=== PATIENT | female | born 1950 | race Caucasian/White ===

== ENCOUNTER 2023-07-21 15:07 | Outpatient (REF) | payer OTHER, SELFPAY ==
[2023-07-21 17:28] LABS: MANUAL DIFF FLAG NO
[2023-07-21 17:35] LABS: Basophils Absolute Auto 0.1 X10*3/uL (0.0-0.2); Basophils Percent Auto 0.5 % (0-2); Eosinophils Absolute Auto 0.1 X10*3/uL (0.0-0.4); Eosinophils Percent Auto 1.4 % (0-4); Hematocrit 44.1 % (37.0-47.0); Hemoglobin 14.7 g/dl (12.0-16.0); Imm Gran Abs Auto 0.07 X10*3/uL (0.00-0.03); Imm Gran Pct Auto 0.7 % (0.0-0.4); Lymphocytes Percent Auto 21.6 % (20-40); Mean Corpuscular HGB Conc 33.3 g/dl (31.0-35.0); Mean Corpuscular Hemoglobin 29.8 pg (27.0-33.0); Mean Corpuscular Volume 89.3 fL (80.0-98.0); Mean Platelet Volume 10.5 fL (9.4-12.3); Monocytes Absolute Auto 0.5 X10*3/uL (0.1-1.2); Monocytes Percent Auto 5.8 % (2-11); Neutrophils Absolute Auto 6.6 x10*3/uL (2.0-8.3); Platelet Count 275 X10*3/uL (160-400); Red Blood Count 4.94 X10*6/uL (4.20-5.50); Red Cell Distribution Width 13.1 % (11.0-16.0); White Blood Count 9.4 X10*3/uL (4.8-10.8)
[2023-07-21 18:10] LABS: Alanine Aminotransferase 22 U/L (0-31); Albumin Level 4.3 g/dL (3.5-5.0); Alkaline Phosphatase 80 U/L (39-117); Anion Gap 14 (12-20); Aspartate Amino Transferase 25 U/L (5-31); Bilirubin Total 0.5 mg/dL (0.0-1.0); Blood Urea Nitrogen 17 mg/dL (9-16); Calcium 9.3 mg/dL (8.4-10.2); Carbon Dioxide 29 mmol/L (22-29); Chloride 101 mmol/L (96-108); Estimated Glomerular Filt Rate > 60; Glucose Random 116 mg/dL (60-115); Potassium 3.5 mmol/L (3.3-5.1); Sodium 140 mmol/L (135-145); Total Protein 7.4 g/dL (6.5-8.0)
[2023-07-21 18:14] LABS: Vitamin D 25-OH Total 100.8 ng/mL (>30)
[2023-07-21 18:29] LABS: Vitamin B12 > 2000 pg/mL (200-900)
== END 2023-07-21 15:08 | disposition home or self-care (01) ==
LOC: HO.MANLDS 15:07
PROVIDERS: Visit Provider Internal Medicine
DX: I10 Essential (primary) hypertension (principal); E55.9 Vitamin D deficiency, unspecified
CPT/HCPCS: 36415; 80053; 82306; 82607; 85025

== ENCOUNTER 2024-09-29 10:28 | Outpatient (REF) | payer OTHER, SELFPAY ==
--- OUTSIDE RECORDS SUMMARY | 2024-09-29 10:58 | XMS_ITS | Continuity of Care Document ---
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 HIGH MUST MEET 2 OUT OF 3 ELEMENTS: PROBLEMS, DATA OR RISK ELEMENT 1: PROBLEMS 1 OR MORE CHRONIC ILLNESS W/SEVERE EXACERBATION, PROGRESSION MAY REQUIRE HOSPITAL LEVEL CARE OR 1 ACUTE OR CHRONIC ILLNESS OR INJURY THAT POSES A THREAT TO LIFE OR BODILY FUNCTION ELEMENT 2: DATA: MUST MEET 2 OF 3 CATEGORIES CATEGORY 1 REVIEW OF PRIOR EXTERNAL NOTES REVIEW OF THE RESULTS ORDERING OF EACH TEST ASSESSMENT REQUIRING INDEPENDENT HISTORIAN(S) CATEGORY 2: INDEPENDENT INTERPRETATION OF TESTS BY ANOTHER PROVIDER/SPECIALI ST CATEGORY 3: DISCUSSION OF MGT OR TEST INTERPRETATION W/EXTERNAL PHYSICIAN/SPECIAL IST ELEMENT 3: RISK HIGH RISK OF MORBIDITY FROM ADDITIONAL DIAGNOSTIC TESTING OR TREATMENT PROVIDER MUST THOROUGHLY DOCUMENT EACH ELEMENT THAT IS COVERED The patient presented to their appointment today for multiple concerns requiring moderate to high-level decision making and took over 40-45 minutes for an adequate and appropriate history, exam, assessment and treatment plan. This appointment was done with an established patient. Not available 09/29/2024 10:26:40 Plan of Treatment Reminders Order Date Submit Date Provider Last Modified By Organization Details Last Modified Time Details Appointments FOLLOW UP 15 2024 09:45A M DR DYKES Not available Not available Not available Lab sjogren antibody panel (ssa, ssb, ro, la), serum 2024 025 [facility], [address] [place] [address], [place], [address], 09/29/2024 10:22:56 C-reactiv e protein, quantitat aman, serum or plasma 2024 [facility], [address] [place] [address], [id number], 09/29/2024 10:22:56 ESR (erythroc yte sedimenta tion rate), blood 2024 025 [facility], [address] [place] [address], [id number], 09/29/2024 10:22:57 CMP, serum or plasma 2024 [facility], [address] [place] [address], [id number], 09/29/2024 10:22:57 CBC [address] [place] [address] Laboratory, [address] [place] [address], [id number], 09/29/2024 10:22:56 vitamin D, 25-hydrox y, total, serum 2024 [facility], [address] [place] [address], [address], 09/29/2024 10:22:56 lipid panel, blood 2024 025 [facility], [address] [place] [address], [id number], 09/29/2024 10:22:56 YASMIN + rf (antinucl ear antibodie s + rheumatoi d factor), quantitat aman, serum 2024 025 [facility], [address] [place] [address], [id number], 09/29/2024 10:22:57 Referral None recorded. Procedures None recorded. Surgeries None recorded. Imaging MAMMO, screening , digital, bilateral 2024 025 [facility] (Radiology), [address], [place], [address], 09/29/2024 10:31:59 Medication Orders None recorded. Patient TargetsNo targets recorded. Patient Instructions Encounter Date Encounter Id Patient Instructions Last Modified By Organization Details Last Modified Time 09/29/2024 [id number] mammogram: about this test Not available 09/29/2024 10:26:13 pulse oximetry* Not available 09/29/2024 10:21:36 Rheumatoid Arthritis (RA): Care Instructions [email or web address] Not available 09/29/2024 10:21:36 Reason for Referral None Reported. Results Created Date Observation Date Name Description Value Unit Range Abnormal Flag Note LastModifiedBy Organization Detail LastModifiedTime 09/30/1909/29/2024 pulse oxime try* Result 98 Not Available [facility] [address], [place], [address], 09/26/2024 16:59:27 Result Notes None recorded. 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 Not Available [facility] 13:17:55 Rheumato id arthriti s 28098487 Active 2021 Not Available [facility] 3 13:17:56 Right trigemin al neuralgi a 3276404015 9039689 Active 2021 Not Available [facility] 10/25/202 3 13:17:55 Pain in left lower limb 651452426 Active 2021 Not Available [facility] 3 13:17:55 Atypical pneumoni a 515476922 Active 2021 Not Available [facility] 3 13:17:55 Angular cheiliti s 514372672 Active 2021 Not Available [facility] 3 13:17:55 Craniofa cial hyperhid rosis 373799154 Active 2021 Not Available [facility] 3 13:17:55 Anxiety 77739842 Active 2021 Not Available [facility] 3 13:17:56 Cough 66328560 Active 2021 Not Available [facility] 3 13:17:56 Chronic cough 67189201 Active 2022 Not Available [facility] 3 13:17:56 Herpes zoster 5097615 Active 2022 Not Available [facility] 3 13:17:56 Reactive airway disease 6166366210 06 Active 2022 Not Available [facility] 3 13:17:56 Asthma 585106930 Active 2022 Not Available [facility] 3 13:17:55 Pneumoni a 745672316 Active 2022 Not Available [facility] 3 13:17:55 Paroxysm al atrial fibrilla tion 244344137 Active 2022 Not Available [facility] 3 13:17:55 Acute pelvic pain 311849019 Active 2022 Not Available [facility] 3 13:17:55 Left lower quadrant pain 159727293 Active 2022 Not Available [facility] 3 13:17:55 Osteoart hritis of joint of hand 41824627 Active 2022 Not Available [facility] 3 13:17:55 Abdomina l pain 38381621 Active 2022 Not Available [facility] 3 13:17:55 Kidney stone 92707725 Active 2022 Not Available [facility] 3 13:17:56 Supraven tricular tachycar peter 7464133 Active 2022 Toy Dykes, [address], [address], [facility] 3 11:31:10 Osteoart 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 67282001 Active 2022 Toy Dykes DO [address] [place] [address], [address], [facility] 3 11:35:13 Depressi ve disorder 61553598 Active 2022 Toy Dykes [address], [address], [facility] 3 11:36:41 Vitamin D deficien 37777899 Active 2023 Toy Dykes DO [address] [place] [address], [address], [facility] 4 14:54:47 Hemicran ia continua 311359399 Active 2023 Toy Dykes [address], [address], [facility] 4 15:00:57 Localize d, primary osteoart hritis of the shoulder region 962520161 Active 2023 Toy Dykes [address], [address], [facility] 4 10:47:32 Actinic keratosi s 386376298 Active 2023 Toy Dykes [address], [address], [facility] 4 10:54:12 Osteoart hritis of right glenohum eral joint 3348939612 960505 Active 2023 Toy Dykes DO [address] [place] [address], [address], [facility] 4 23:14:03 Pain of right shoulder joint 6421837990 6992945 Active 2023 Toy Dykes, DO [address] [place] [address], [address], [facility] 4 09:43:06 Pain of left breast 0794660527 Active 2023 Toy Dykes, DO [address] [place] [address], [address], [facility] 4 09:48:34 Primary osteopor osis 690105617 Active 2023 Toy Dykes, DO [address] [place] [address], [address], [facility] 4 15:46:37 Osteopor osis 12037336 Active 2023 Toy Dykes, DO [address] [place] [address], [address], [facility] 4 20:05:32 Paroxysm al supraven tricular tachycar peter 47555614 Active 2024 Toy Dykes, DO [address] [place] [address], [address], [facility] 5 10:24:58 Essentia l hyperten zaid 44875111 Active 2017 Not Available [facility] 3 13:17:56 Gastroes ophageal reflux disease 922390731 Active 2017 Not Available [facility] 3 13:17:55 Migraine 87969429 Active 2017 Not Available [facility] 3 13:17:55 Restless legs 71290482 Active 2017 Not Available [facility] 3 13:17:55 Rheumato id arthriti s 66846884 Completed 201710/06/2019 Toy Dykes, DO [address] [place] [address], [address], [facility] 2 14:26:24 Ischemic colitis 38487548 Active 2017 Not Available [facility] 3 13:17:55 Fibromya lgia 469945088 Active 2017 question of fibro Not Available [facility] 3 13:17:55 Keratoco njunctiv itis sicca 067734301 Active 2024 Toy Dykes, [address] [place], [address], [facility] 5 10:17:42 Cervico- occipita l neuralgi a 41027610 Active 2017 Not Available [facility] 3 13:17:56 Obstruct aman sleep apnea syndrome 01315684 Active 2017 Not Available [facility] 3 13:17:56 History of mood disorder 888312201 Active 2017 Not Available [facility] 3 13:17:56 Problem Notes None recorded. Procedures Surgical History Date Name Laterality Status Provider Name and Address Organization Details Recorded Time Total knee arthroplasty completed [address], [address], [facility] 09/16/2017 10:26:47 Partial Hysterectomy completed [address], [address], [facility] 09/16/2017 10:26:59 Mayra arthrs srg capsulorraphy completed [address], [address], [facility] 09/16/2017 10:27:28 Imaging Results None recorded. Procedure Notes None recorded. Medical Equipment None Reported. Allergies Allergen ID Allergen Name Allergen Category Reaction Reaction Severity Criticality Documentation Date Start Date Code Code System Note Provider Name and Address Organization Details Recorded Time 1310 Tylenol-C odeine medicatio n vomiting Not available Not available 10/04/2017 [address] [facility] 8 15:08:50 2098 nystatin medicatio n rash Not available Not available 12/31/20172017 7597 RxNorm Toy Mary AliceCabrera [facility], [address] [place], [address], [facility] 8 09:47:25 Medications Name Sig Start Date Stop Date Status Note LastModified by Organization Details LastModified Time celecoxib 200 mg capsule TAKE 1 CAPSULE BY MOUTH TWICE A DAY 03/17 completed raises blood pressure Not Available Not Available Not Available cyclobenz aprine 10 mg tablet TAKE 1 TABLET BY MOUTH EVERYDAY AT BEDTIME active Not Available Not Available No t Available carvedilo l 25 mg tablet TAKE 1 TABLET BY MOUTH TWICE A DAY active Not Available Not Available No t Available prednison e 10 mg tablet 10/04 completed Not Available Not Available Not Available carvedilo l 12.5 mg tablet TAKE 1 TABLET BY MOUTH TWICE A DAY 11/15 completed Not Available Not Available Not Available cefaclor 500 mg capsule 10/04 completed Not Available Not Available Not Available azithromy fabrice 250 mg tablet TAKE 2 TABLETS BY MOUTH TODAY, THEN TAKE 1 TABLET DAILY FOR 4 DAYS 07/14 completed Not Available Not Available Not Available aspirin 325 mg tablet Take 1 tablet(s ) twice a day by oral route. 07/22 completed Not Available Not Available Not Available metoprolo l succinate ER 50 mg tablet,ex tended release 24 hr TAKE 1 TABLET TWICE A DAY BY ORAL ROUTE FOR 90 DAYS. active Not Available Not Available No t Available valacyclo vir 1 gram tablet TAKE 1 TABLET BY MOUTH THREE TIMES A DAY FOR 7 DAYS 07/14 completed Not Available Not Available Not Available tretinoin 0.025 % topical cream APPLY A PEA SIZED AMOUNT TO ENTIRE FACE 2-3 NIGHTS PER WEEK TOLERATE D active Not Available Not Available No t Available lisinopri l 20 mg tablet 10/15 completed Not Available Not Available Not Available prednison e 20 mg tablet TAKE 1 TABLET BY MOUTH DAILY WITH BREAKFAS T 07/14 completed Not Available Not Available Not Available rizatript an 10 mg tablet PLEASE SEE ATTACHED FOR DETAILED DIRECTIO NS active Not Available Not Available No t Available amlodipin e 5 mg tablet TAKE 1 TABLET BY MOUTH EVERY DAY FOR 30 DAYS 08/17 completed Not Available Not Available Not Available cyclopent olate 1 % eye drops ADMINIST ER 1 DROP INTO RIGHT EYE TWICE DAILY FOR 7 DAYS. active Not Available Not Available No t Available oxycodone -acetamin ophen 5 mg-325 mg tablet 10/04 completed Not Available Not Available Not Available prednisol one acetate 1 % eye drops,hitesh pension ADMINIST ER 1 DROP INTO RIGHT EYE EVERY 6 HOURS. active Not Available Not Available No t Available clindamyc in 1 % topical gel 03/13 completed Not Available Not Available Not Available methotrex ate sodium 2.5 mg tablet Take 7 tablets once a week 12/31 completed Not Available Not Available Not Available prednison e 1 mg tablet Take two tablets daily. 12/31 completed Not Available Not Available Not Available amlodipin e 10 mg tablet TAKE 1 TABLET BY MOUTH EVERY DAY 12/11 completed Not Available Not Available Not Available cephalexi n 500 mg capsule 10/04 completed Not Available Not Available Not Available pantopraz ole 40 mg tablet,de layed release TAKE 1 TABLET BY MOUTH TWICE A DAY active Not Available Not Available No t Available erythromy fabrice 5 mg/gram (0.5 %) eye ointment APPLY 1 CM RIBBON INTO THE LOWER CONJUNCT IVAL SAC(S) IN THE AFFECTED EYE(S) BY OPHTHALM IC ROUTE 3 TIMES PER DAY 07/22 completed Not Available Not Available Not Available buspirone 30 mg tablet TAKE 1 TABLET BY MOUTH TWICE A DAY active Not Available Not Available No t Available buspirone 10 mg tablet TAKE 1 TABLET BY MOUTH TWICE A DAY 03/17 completed Not Available Not Available Not Available clotrimaz ole-betam ethasone 1 %-0.05 % topical cream APPLY TO AFFECTED AREAS & SURROUND ING AREAS TWICE A DAY FOR 2 WEEKS IN THE MORNING AND EVENING 10/24 completed Not Available Not Available Not Available lisinopri l 10 mg tablet TAKE 1 TABLET BY MOUTH EVERY DAY 07/14 completed Not Available Not Available Not Available indometha fabrice 50 mg capsule TAKE 1 CAPSULE BY MOUTH ONCE DAILY NEEDED FOR HEADACHE active Not Available Not Available No t Available lisinopri l 30 mg tablet Take 1 tablet every day by oral route. 07/22 completed Not Available Not Available Not Available triamtere ne 37.5 mg-hydroc hlorothia zide 25 mg tablet Take 1 tablet every day by oral route for 30 days. 05/28 completed Not Available Not Available Not Available folic acid 1 mg tablet Take one tablet daily except on day she takes methotre xate. 07/22 completed Not Available Not Available Not Available codeine 10 mg-guaife nesin 100 mg/5 mL oral liquid TAKE 10 MILLILIT ERS BY MOUTH EVERY 4 HOURS NEEDED 08/26 completed Not Available Not Available Not Available hydrochlo rothiazid e 25 mg tablet TAKE 1 TABLET BY MOUTH EVERY DAY active Not Available Not Available No t Available metoprolo l succinate ER 25 mg tablet,ex tended release 24 hr TAKE 1 TABLET BY MOUTH EVERY DAY 11/02 completed Not Available Not Available Not Available nystatin 100,000 unit/gram topical powder APPLY TO THE AFFECTED AREA(S) BY TOPICAL ROUTE 2 TIMES PER DAY 12/31 completed Not Available Not Available Not Available levofloxa fabrice 500 mg tablet TAKE 1 TABLET BY MOUTH EVERY DAY FOR 10 DAYS 12/11 completed Not Available Not Available Not Available albuterol sulfate HFA 90 mcg/actua tion aerosol inhaler INHALE 2 PUFFS INTO THE LUNGS EVERY 4 HOURS active Not Available Not Available No t Available doxycycli ne hyclate 100 mg tablet TAKE 1 TABLET BY MOUTH TWICE A DAY FOR 10 DAYS 01/09 completed Not Available Not Available Not Available buspirone 15 mg tablet TAKE 1 TABLET BY MOUTH TWICE A DAY 04/09 completed Not Available Not Available Not Available oxycodone 5 mg tablet 10/04 completed Not Available Not Available Not Available escitalop dalia 10 mg tablet Take 1 tablet every day by oral route for 30 days. active Not Available Not Available No t Available duloxetin e 30 mg capsule,d elayed release TAKE 1 CAPSULE BY MOUTH ONCE A DAY FOR 10 DAYS THEN TAKE 1 CAPSULE EVERY OTHER DAY active Not Available Not Available No t Available duloxetin e 60 mg capsule,d elayed release TAKE 1 CAPSULE BY MOUTH TWICE A DAY 04/07 completed Not Available Not Available Not Available ibandrona te 150 mg tablet TAKE 1 TABLET BY MOUTH EVERY MONTH active Not Available Not Available No t Available pregabali n 75 mg capsule TAKE 1 CAPSULE BY MOUTH TWICE A DAY FOR 30 DAYS 02/23 completed Not Available Not Available Not Available sodium fluoride 1.1 %-potassi um nitrate 5 % dental paste PLEASE SEE ATTACHED FOR DETAILED DIRECTIO NS active Not Available Not Available No t Available duloxetin e 40 mg capsule,d elayed release TAKE 2 CAPSULES BY MOUTH EVERY DAY 02/18 completed Not Available Not Available Not Available metoprolo l tartrate 75 mg tablet TAKE 1 TABLET BY MOUTH EVERY DAY active Not Available Not Available No t Available metoprolo l succinate ER 50 mg capsule sprinkle, ext. release 24 hr Take 1 capsule every day by oral route. 10/24 completed Not Available Not Available Not Available Wixela Inhub 250 mcg-50 mcg/dose powder for inhalatio n INHALE 1 DOSE BY MOUTH TWICE DAILY. RINSE MOUTH AFTER USE active Not Available Not Available No t Available [employer] COVID-19 Antigen Home Test kit USE DIRECTED 08/26 completed Not Available Not Available Not Available Vitals Date Recorded Body height Body mass index (BMI) Body weight Heart rate Oxygen saturation Oxygen saturation in Arterial blood by Pulse oximetry Systolic blood pressure Diastolic blood pressure Provider Name and Address Organization Details Last Updated DateTime 5 166.37 cm 28.4 kg/m2 25062.4 8 g 68 /min 98 % 98 % 130 mm[Hg] 74 mm[Hg] [facility] 5 09:48:42 Social History Question Answer Notes LastModified by Organizat ion Details LastModified Time Tobacco Smoking Status Never Smoker Not Available [facility] 03/26/2020 03:36:24 What Was The Date Of Your Most Recent Tobacco Screening? 09/29/2024 [email or web address] Information not available 09/29/2024 Do You Or Have You Ever Used Any Other Forms Of Tobacco Or Nicotine? No [email or web address] Information not available 10/21/2021 Sex: Unknown Functional Status None recorded. Mental Status None recorded. Family History Nothing Reported. Medical History No medical history recorded. Gynecological HistoryNo gynecological history recorded. Obstetrics History GPAL:G 0 P 0 0 0 0 Immunizations Vaccine Type Date Status Note Provider Nam e and Address Organization Details Recorded Time Influenza, split virus, quadrivalent, preservative 1 [facility] 13:56:45 COVID-19, mRNA, LNP-S, PF, 30 mcg/0.3 mL dose 1 completed Toy Dykes DO [address] [place] [address], [address], [facility] 12/03/2021 15:26:10 Influenza, split virus, quadrivalent, preservative 2 completed [facility] 03/13/2022 09:31:45 influenza, unspecified formulation 3 completed Toy Dykes DO [address] [place] [address], [address], [facility] 03/04/2023 20:22:50 zoster, unspecified formulation 4 completed [facility] 01/21/2024 09:06:15 influenza, unspecified formulation 4 completed [facility] 04/07/2024 08:37:02 Influenza, split virus, quadrivalent, preservative 8 completed [facility] 07/22/2018 14:05:46 Influenza, split virus, quadrivalent, preservative 9 completed [facility] 03/13/2019 13:34:40 COVID-19, mRNA, LNP-S, PF, 30 mcg/0.3 mL dose 0 completed [facility] 11/12/2020 09:47:19 COVID-19, mRNA, LNP-S, PF, 30 mcg/0.3 mL dose 1 completed [facility] 11/12/2020 09:47:26 Past Encounters Encounter ID Performer Location Encounter Start Date Encounter Closed Date Diagnosis/Indication Diagnosis SNOMED-CT Code Diagnosis ICD10 Code Diagnosis Note [id number] Toy Dykes [facility] [address],[place] [address] 09/29/2024 09:42:29 09/29/2024 10:31:59 Asthma 592930079 J45.909 some wheezing but wixella Essential hypertension 95001092 I10 bop is great she is having low bps and some pulse in upper 50s we will hold the hctz Fibromyalgia 074278654 M 79.7 seems to be about the same agree she cont the cbd,but also bc of the poly pharmacy we will have her stop the pregabalin by taking 1 per day ofr rest of week athen stop then we will address celebrex and duloxetine Paroxysmal atrial fibrillation 071366844 I48.0 has been quiet will be seeing cardiology shortly Vitamin D deficiency 347 59403 E55.9 needs to have this checked given the renal calculi Depression screening 171 065833 Z13.31 stable Keratoconj unctivitis sicca 744159181 H16.223 Rheumatoid arthritis 698 61480 M06.9 was told rheumatoid is in remission following dr Lyon every 6 mo and now is off pred 2mg had thumbs inj with asher no longer listed as a dx pt states is in remission but rheum doesn't even mention Screening mammography 24 608816 Z12.31 up to date Health Concerns Section Related Observation LastModified by Organization Detai ls LastModified Time None Recorded Concern Status LastModified by Organization Details LastModified Time None Recorded Payers Encounter Date Sequence Insurance Name Policy Number Policy Zhang Covered Member ID Zhang Member ID Guarantor Name 09/29/2024 1 [facility] - MEDICARE PREFERRED (MEDICARE REPLACEMENT HMO) MONIQUE Mon [id number] 1 Yumiko Mon Notes Date Note Type Note Provider Name and Address Organization Details Recorded Time 09/30/19 25 text/ht ml Care Management - AsthmaReported bypatient.Severity:improving; does not interfere with daily activities; does not disturb sleep; does not cause nighttime awakening Associated Symptoms:no fever; no fatigue; no irritability; no cough; normal appetite; no change in productivityCare Management - Atrial FibrillationReported bypatient.Medications:complia nt with medication Prior Imaging:echocardiogram; recent ECG Associated Symptoms:no dizziness; no chest pain; no easy bruisability; no rapid heart rateCare Management - HypertensionReported bypatient.Self Care:not under emotional stress Severity:symptoms are improving; does not interfere with daily activities Associated Symptoms:no dizziness; no lightheadedness; no chest pain; no shortness of breath; no palpitations; no edema; no calf muscle cramps; no blurred vision; no confusion; no headaches; no fatigueCare management - Vitamin D Deficiency/OsteoporosisReport ed bypatient.Height:height stable Fracture History:no history of recent fracture Associated Symptoms:no bone pain; no history of kidney stonesFibromyalgiaReported bypatient.Severity:no pain Pain in Joints or Muscles:no pain of joints or muscles Associated Symptoms:no fatigue; no history of IBS; normal sleep habits; no headaches; no jaw pain; no memory impairment; no morning stiffness; no muscle spasms; no pain with menstruation; no numbness/tingling; no dizziness; no lightheadedness; no skin sensitivity here for rechk was dx as an iritis and given meds and drops and it didnt go away and was now being treated for iritis (she had no symptoms) Toy Dykes, DO [address] [facility] [facility], [place], [address], [facility] 09/29/2024 10:26:58 OBGyn Episode No OBEpisode recorded.
--- OUTSIDE RECORDS SUMMARY | 2024-09-29 10:58 | XMS_ITS | Encounter Summary ---
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 Name Role Phone Toy Hardy DO Primary Care Provider [phone] Encounter Details Date Type Department Care Team (Late st Contact Info) Description 04/13/2024 Lab Requisition [facility] - Main Lab [address] [facility] [place] [phone] Kirsten Butler MD [address] [facility] [address] [place] [address] Other abnormal findings in urine Social History Tobacco Use Types Packs/Day Years Used Date Smoking Tobacco: Never Smokeless Tobacco: Never Alcohol Use Standard Drinks/Week Comments Yes 0 (1 standard drink = 0.6 oz pur e alcohol) Comments Unknown Sex and Gender Information Value Date Recorded Sex Assigned at Female 05/19/2024 8:40 AM EST Legal Sex Female 10:29 PM EST Gender Identity Female 05/19/2024 8:40 AM EST Sexual Orientation Straight 05/19/2024 8: 40 AM EST documented as of this encounter Plan of Treatment Not on file documented as of this encounter Procedures Procedure Name Priority Date/Time Associated Diagnosis Comments BACTERIAL IDENTIFICATION AND SUSCEPTIBILITY, AEROBIC Routine 04/12/2024 12:00 AM EST Other abnormal findings in urine documented in this encounter Results * Bacterial identification and susceptibility, aerobic (04/12/2024 12:00 AM EST) Culture, Bacterial ID and Sensitivity Mixed urogenital philip, no uropathogens present. Suggest repeat specimen, if clinically indicated. 04/14/2024 8:06 AM EST [facility] Other Urine specimen from urethra / Unknown 04/12/2024 04/13/2024 10:23 AM EST us Kirsten Butler MD LAB MICROBIOLOGY - G ENERAL ORDERABLES Final Result [facility] [address] [place] [address], documented in this encounter Visit Diagnoses Diagnosis Other abnormal findings in urine documented in this encounter Care Teams Plant Breeder Scientist Relationship Specialty Start Date End Date Toy Hardy DO [address] [facility] [address] [place], [place] PCP - General Internal Medicine 04/11/15 documented as of this encounter
--- OUTSIDE RECORDS SUMMARY | 2024-09-29 10:58 | XMS_ITS | Data Portability ---
Author Organization [facility] Home Service Address [address] [place] [address] Assessment Encounter Date Assessment Date Assessment LastModified by Organization Details LastModified Time 10/25/2023 10/25/2023 Patient presente d to office today for their Medicare Annual Wellness Visit. Education was provided on healthy nutrition, including a diet rich in fruits and vegetables, minimizing simple carbohydrates, salt, and saturated fats. Encouraged regular cardiovascular exercise such as walking at least 30 minutes daily, 5 times per week. Emphasized preventive health measures and educated pt on fall prevention and community-based lifestyle interventions to help reduce health risks and promote healthy living. Not available 10/22/2023 15:36:03 12/03/2023 12/03/2023 [address] [place] [address] (STEP DOWN NURSE) MDM MODERATE MUST MEET 2 OUT OF 3 ELEMENTS: PROBLEMS, DATA OR RISK ELEMENT 1: PROBLEMS ADDRESSED 1 OR MORE CHRONIC ILLNESS WITH EXACERBATION OR 2 OR MORE STABLE CHRONIC ILLNESSES OR 1 UNDIAGNOSED NEW PROBLEM OR 1 ACUTE ILLNESS W/SYMPTOMS OR 1 ACUTE COMPLICATED INJURY ELEMENT 2: DATA MUST MEET 1 OF 3 CATEGORIES CATEGORY 1: REVIEW OF PRIOR EXTERNAL NOTES, REVIEW OF RESULTS, ORDERING OF EACH TEST, ASSESSMENT REQUIRING INDEPENDENT HISTORIAN OR CATEGORY 2: INDEPENDENT INTERPRETATION OF TESTS BY ANOTHER PHYSICIAN OR SPECIALIST OR CATEGORY 3: DISCUSSION OF MGT OR TEST INTERPRETATION W/EXTERNAL PHYSICIAN OR SPECIALIST ELEMENT 3: RISK RISK OF COMPLICATIONS AND/OR MORBIDITY OR MORTALITY OF PATIENT MANAGEMENT PROVIDER MUST THOROUGHLY DOCUMENT EACH ELEMENT THAT IS COVERED Not available 12/03/2023 09:41:19 03/17/2024 03/17/2024 [id number] [place] [address] (STEP DOWN NURSE) MDM MODERATE MUST MEET 2 OUT OF 3 ELEMENTS: PROBLEMS, DATA OR RISK ELEMENT 1: PROBLEMS ADDRESSED 1 OR MORE CHRONIC ILLNESS WITH EXACERBATION OR 2 OR MORE STABLE CHRONIC ILLNESSES OR 1 UNDIAGNOSED NEW PROBLEM OR 1 ACUTE ILLNESS W/SYMPTOMS OR 1 ACUTE COMPLICATED INJURY ELEMENT 2: DATA MUST MEET 1 OF 3 CATEGORIES CATEGORY 1: REVIEW OF PRIOR EXTERNAL NOTES, REVIEW OF RESULTS, ORDERING OF EACH TEST, ASSESSMENT REQUIRING INDEPENDENT HISTORIAN OR CATEGORY 2: INDEPENDENT INTERPRETATION OF TESTS BY ANOTHER PHYSICIAN OR SPECIALIST OR CATEGORY 3: DISCUSSION OF MGT OR TEST INTERPRETATION W/EXTERNAL PHYSICIAN OR SPECIALIST ELEMENT 3: RISK RISK OF COMPLICATIONS AND/OR MORBIDITY OR MORTALITY OF PATIENT MANAGEMENT PROVIDER MUST THOROUGHLY DOCUMENT EACH ELEMENT THAT IS COVERED Not available 03/17/2024 09:48:55 06/16/2024 06/16/2024 [id number] or [id number] (STEP DOWN NURSE) MDM MODERATE MUST MEET 2 OUT OF 3 ELEMENTS: PROBLEMS, DATA OR RISK ELEMENT 1: PROBLEMS ADDRESSED 1 OR MORE CHRONIC ILLNESS WITH EXACERBATION OR 2 OR MORE STABLE CHRONIC ILLNESSES OR 1 UNDIAGNOSED NEW PROBLEM OR 1 ACUTE ILLNESS W/SYMPTOMS OR 1 ACUTE COMPLICATED INJURY ELEMENT 2: DATA MUST MEET 1 OF 3 CATEGORIES CATEGORY 1: REVIEW OF PRIOR EXTERNAL NOTES, REVIEW OF RESULTS, ORDERING OF EACH TEST, ASSESSMENT REQUIRING INDEPENDENT HISTORIAN OR CATEGORY 2: INDEPENDENT INTERPRETATION OF TESTS BY ANOTHER PHYSICIAN OR SPECIALIST OR CATEGORY 3: DISCUSSION OF MGT OR TEST INTERPRETATION W/EXTERNAL PHYSICIAN OR SPECIALIST ELEMENT 3: RISK RISK OF COMPLICATIONS AND/OR MORBIDITY OR MORTALITY OF PATIENT MANAGEMENT PROVIDER MUST THOROUGHLY DOCUMENT EACH ELEMENT THAT IS COVERED Not available 06/16/2024 10:22:27 09/29/2024 09/29/2024 [id number] [place] [id number] (STEP DOWN NURSE) MDM HIGH MUST MEET 2 OUT OF [...] panel (ssa, ssb, ro, la), serum 2024 [facility], [address] [place] [address], [address], 09/29/2024 10:22:56 C-reactiv e protein, quantitat aman, serum or plasma 2024 [facility], [address] [place] [address], [address], 09/29/2024 10:22:56 ESR (erythroc yte sedimenta tion rate), blood 2024 025 [facility], [address] [place] [address], [address], 09/29/2024 10:22:57 CMP, serum or plasma 2024 025 [facility], [address] [place] [address], [address], 09/29/2024 10:22:57 CBC 2024 025 [facility], [address] [place] [address], [address], 09/29/2024 10:22:56 vitamin D, 25-hydrox y, total, serum 2024 025 [facility], [address] [place] [address], [address], 09/29/2024 10:22:56 lipid panel, blood 2024 025 [facility], [address] [place] [address], [address], 09/29/2024 10:22:56 YASMIN + rf (antinucl ear antibodie s + rheumatoi d factor), quantitat aman, serum 2024 025 [facility], [address] [place] [address], [place], [address], 09/29/2024 10:22:57 lipid panel, blood 2023 024 [facility], [address] [place] [address], [place], [address], 03/14/2024 17:34:42 CBC w/ auto diff 2023 024 [facility], [address] [place] [address], [address], 10/25/2023 11:01:03 CMP, serum or plasma 2023 024 [facility], [address] [place] [address], [place], [address], 10/25/2023 11:01:03 lipid panel, blood 2023 024 [facility], [address] [place] [address], [address], 10/25/2023 11:01:03 Referral dermatolo gist referral 2023 024 [email or web address] 10 Ana Moran MD, [address], [place], [address], 10/27/2023 08:24:40 physical therapist referral - will forward xray results 2023 024 [facility], [facility] Ebonie Malik, [place], [address], 11/22/2023 10:28:35 Procedures None recorded. Surgeries None recorded. Imaging MAMMO, screening , digital, bilateral 2024 025 [facility] (Radiology), [address] [place], [address], 09/29/2024 10:31:59 MAMMO, diagnosti c, digital, bilateral 2023 024 [email or web address], [address] [place], [address], 03/31/2024 08:15:22 bone density 2023 024 [email or web address] Not available 11/08/2023 08:45:06 XR, shoulder, 2 or more view 2023 024 [facility] Not available 10/30/2023 02:14:04 Medication Orders buspirone 30 mg tablet 2023 024 [id number], [address] [place], [address], 04/09/2024 17:56:14 Patient TargetsNo targets recorded. Patient Instructions Encounter Date Encounter Id Patient Instructions Last Modified By Organization Details Last Modified Time 10/25/2023 [id number] advance care planning: care instructions Not available 10/25/2023 10:52:34 pulse oximetry* Not available 10/25/2023 10:52:39 actinic keratosis: care instructions Not available 10/25/2023 10:56:39 Discussed and explained advance directives such as standard forms to the {{patient caregiv er patient and caregiver}}. Face to face discussion lasted for a duration of ___ minutes. Not available 10/22/2023 15:36:03 12/03/2023 [id number] cough: care instructions Not available 12/03/2023 09:50:31 pulse oximetry* NIRAV Not available 12/03/2023 10:30:51 06/16/2024 [id number] pulse oximetry* Not available 06/16/2024 10:24:59 09/29/2024 [id number] mammogram: about this test Not available 09/29/2024 10:26:13 pulse oximetry* Not available 09/29/2024 10:21:36 Rheumatoid Arthritis (RA): Care Instructions Not available 09/29/2024 10:21:36 Reason for Referral Physical Therapist Referral for Localized, primary osteoarthritis of the shoulder region will forward xray results Referring Physician: Toy Dykes, Internal Medicine, Encounter Date: 10/25/2023 Wheelchair Rental Clerk Referral for A ctinic keratosis Referring Physician: Toy Dykes, Internal Medicine, Encounter Date: 10/25/2023 Results Created Date Observation Date Name Description Value Unit Range Abnormal Flag Note LastModifiedBy Organization Detail LastModifiedTime 10/25/19 24 10/25/2023 pulse oxime try* Result 97 Not Available [facility] [address] [facility], [place], [address], 10/22/2023 15:36:13 12/03/19 24 12/03/2023 pulse oxime try* Result 97% Not Available [facility] [address] [facility] [address], [place], [address], 12/03/2023 07:03:14 06/16/19 25 06/16/2024 pulse oxime try* Result 98 Not Available [facility] [address] [facility] [address], [place], [address], 06/06/2024 15:19:46 09/30/1909/29/2024 pulse oxime try* Result 98 Not Available [facility] [address] [facility] [address], [place], [address], 09/26/2024 16:59:27 10/30/19 24 10/26/2023 XR, shoul pushpa, 2 or more view No observ ation record ed. [address], [place], [address], 12/03/2023 09:37:59 04/06/20 24 03/23/2024 bone densi ty No observ ation record ed. [email or web address] Not Available 04/10 09:41:45 04/12/20 24 04/12/2024 MAMMO , scree melissa, digit al, bilat eral No observ ation record ed. Not Available 2023 22:13:07 Result Notes None recorded. 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 Active 2021 on right side Not Available [facility] 3 13:17:55 Rheumato id arthriti s 24308735 Active 2021 Not Available [facility] 3 13:17:56 Right trigemin al neuralgi a 0867201223 3047147 Active 2021 Not Available [facility] 3 13:17:55 Pain in left lower limb 736572318 Active 2021 Not Available [facility] 3 13:17:55 Atypical pneumoni a 064016494 Active 2021 Not Available [facility] 3 13:17:55 Angular cheiliti s 134027180 Active 2021 Not Available [facility] 3 13:17:55 Craniofa cial hyperhid rosis 082578932 Active 2021 Not Available [facility] 3 13:17:55 Anxiety 66057787 Active 2021 Not Available [facility] 3 13:17:56 Cough 45295954 Active 2021 Not Available [facility] 3 13:17:56 Chronic cough 59161362 Active 2022 Not Available [facility] 3 13:17:56 Herpes zoster 2194238 Active 2022 Not Available [facility] 3 13:17:56 Reactive airway disease 3673745288 06 Active 2022 Not Available [facility] 3 13:17:56 Asthma 336707439 Active 2022 Not Available [facility] 3 13:17:55 Pneumoni a 265666413 Active 2022 Not Available [facility] 3 13:17:55 Paroxysm al atrial fibrilla tion 523394352 Active 2022 Not Available [facility] 3 13:17:55 Acute pelvic pain 727909318 Active 2022 Not Available [facility] 3 13:17:55 Left lower quadrant pain 771293312 Active 2022 Not Available [facility] 3 13:17:55 Osteoart hritis of joint of hand 13305310 Active 2022 Not Available [facility] 3 13:17:55 Abdomina l pain 35532331 Active 2022 Not Available [facility] 3 13:17:55 Kidney stone 73633833 Active 2022 Not Available [facility] 3 13:17:56 Supraven tricular tachycar peter 0395101 Active 2022 Toy Dykes, DO [address], [place], [address], 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 3 11:35:13 Depressi ve disorder 04910681 Active 2022 Toy Dykes, DO [address] [place] [address], [address], [facility] 3 11:36:41 Vitamin D deficien 54726137 Active 2023 Toy Dykes, DO [address] [place] [address], [address], [facility] 4 14:54:47 Hemicran ia continua 857832112 Active 2023 Toy Dykes, DO [address] [place] [address], [address], [facility] 4 15:00:57 Localize d, primary osteoart hritis of the shoulder region 747271206 Active 2023 Toy Dykes DO [address] [place] [address], [address], [facility] 4 10:47:32 Actinic keratosi s 083915368 Active 2023 Toy Dykes, DO [address] [place] [address], [address], 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 4 23:14:03 Pain of right shoulder joint 7354465106 1791745 Active 2023 Toy Dykes DO [address] [place] [address], [address], [facility] 4 09:43:06 Pain of left breast 7934162787 Active 2023 Toy Dykes DO [address] [place] [address], [address], [facility] 4 09:48:34 Primary osteopor osis 105936890 Active 2023 Toy Dykes, DO [address] [place] [address], [address], [facility] 4 15:46:37 Osteopor osis 08353092 Active 2023 Toy Dykes, DO [address] [place] [address], [address], [facility] 4 20:05:32 Paroxysm al supraven tricular tachycar peter 90479839 Active 2024 Toy Dykes, DO [address] [place] [address], [address], [facility] 5 10:24:58 Essentia l hyperten zaid 82368405 Active 2017 Not Available [facility] 3 13:17:56 Gastroes ophageal reflux disease 789162607 Active 2017 Not Available [facility] 3 13:17:55 Migraine 20429337 Active 2017 Not Available [facility] 3 13:17:55 Restless legs 78402920 Active 2017 Not Available [facility] 3 13:17:55 Rheumato id arthriti s 49482131 Completed 201710/06/2019 Toy Dykes, DO [address] [place] [address], [address], [facility] 2 14:26:24 Ischemic colitis 28700827 Active 2017 2013 Not Available [facility] 3 13:17:55 Fibromya lgia 998557841 Active 2017 question of fibro Not Available [facility] 3 13:17:55 Keratoco njunctiv itis sicca 721956800 Active 2024 Toy Dykes DO [address] [place] [address], [address], [facility] 5 10:17:42 Cervico- occipita l neuralgi a 78518199 Active 2017 Not Available [facility] 3 13:17:56 Obstruct aman sleep apnea syndrome 55085008 Active 2017 Not Available [facility] 3 13:17:56 History of mood disorder 218169014 Active 2017 Not Available [facility] 3 13:17:56 Problem Notes None recorded. Procedures Surgical History Date Name Laterality Status Provider Name and Address Organization Details Recorded Time Total knee arthroplasty completed August [address], [address], [facility] 09/16/2017 10:26:47 Partial Hysterectomy completed Charlotte [address], [address], [facility] 09/16/2017 10:26:59 Mayra arthrs srg capsulorraphy completed Charlotte [address], [address], [facility] 09/16/2017 10:27:28 Imaging Results Imaging Date Name Status LastModified by Organiz ation Details LastModified Time 10/26/2023 XR, shoulder, 2 or more view completed [address], [address], 12/03/2023 09:37:59 03/23/2024 bone density completed [email or web address] Information not available 04/10/2024 09:41:45 04/12/2024 MAMMO, screening, digital, bilateral completed Information not available 04/13/2024 22:13:07 Procedure Notes None recorded. Medical Equipment None Reported. Allergies Allergen ID Allergen Name Allergen Category Reaction Reaction Severity Criticality Documentation Date Start Date Code Code System Note Provider Name and Address Organization Details Recorded Time 1310 Tylenol-C odeine medicatio n vomiting Not available Not available 10/04/[address] [facility] 8 15:08:50 8 nystatin medicatio n rash Not available Not available 12/31/20172017 7597 RxNorm Toy Dykes, DO [address] [place], [address], [facility] 8 09:47:25 Medications Name Sig [...] prednisol one acetate 1 % eye drops,hitesh stauffer ADMINIST ER 1 DROP INTO RIGHT EYE [...] and Address Organization Details Last Updated DateTime 4 166.37 cm 27.7 kg/m2 17474.1 9 g 55 /min 97 % 97 % 120 mm[Hg] 78 mm[Hg] Renee Casey [facility] 4 10:33:54 Date Recorded Body height Heart rate Oxygen saturation Oxygen saturation in Arterial blood by Pulse oximetry Systolic blood pressure Diastolic blood pressure Provider Name and Address Organization Details Last Updated DateTime 4 166.37 cm 50 /min 97 % 97 % 124 mm[Hg] 78 mm[Hg] Karely Arriaga [facility] 4 09:33:52 Date Recorded Body mass index (BMI) Body weight Provider Name and Address Organization Details Last Updated DateTime 12/03/2023 26.2 kg/m2 98488.78 g Toy Dykes, DO [address] [facility], [place], [address], [facility] 12/03/2023 09:37:44 Date Recorded Body height Body mass index (BMI) Body weight Heart rate Oxygen saturation Oxygen saturation in Arterial blood by Pulse oximetry Systolic blood pressure Diastolic blood pressure Provider Name and Address Organization Details Last Updated DateTime 4 166.37 cm 28.4 kg/m2 06234.4 8 g 60 /min 98 % 98 % 122 mm[Hg] 76 mm[Hg] Bubba Markham [facility] 4 09:33:51 Date Recorded Body height Heart rate Oxygen saturation Oxygen saturation in Arterial blood by Pulse oximetry Systolic blood pressure Diastolic blood pressure Provider Name and Address Organization Details Last Updated DateTime 5 166.37 cm 67 /min 98 % 98 % 130 mm[Hg] 74 mm[Hg] Karely Championmond [facility] 5 09:50:47 Date Recorded Body height Body mass index (BMI) Body weight Heart rate Oxygen saturation Oxygen saturation in Arterial blood by Pulse oximetry Systolic blood pressure Diastolic blood pressure Provider Name and Address Organization Details Last Updated DateTime 5 166.37 cm 28.4 kg/m2 93045.4 8 g 68 /min 98 % 98 % 130 mm[Hg] 74 mm[Hg] Karely Arriaga [facility] 5 09:48:42 Social History Question Answer Notes LastModified by Organizat ion Details LastModified Time Tobacco Smoking Status Never Smoker Not Available [facility] 03/26/2020 03:36:24 What Was The Date Of Your Most Recent Tobacco Screening? 09/29/2024 [email or web address] Information not available 09/29/2024 Do You Or [...] split virus, quadrivalent, preservative 1 completed Luly nunez [facility] 10/21/2021 13:56:45 COVID-19, mRNA, LNP-S, PF, 30 mcg/0.3 mL dose 1 completed Toy Dykes, [address] [place], [address], [facility] 12/03/2021 15:26:10 Influenza, split virus, quadrivalent, preservative 2 completed Sara Torres [facility] 03/13/2022 09:31:45 influenza, unspecified formulation 3 completed Toy Dykes, [address] [place] [address], [address], [facility] 03/04/2023 20:22:50 zoster, unspecified formulation 4 completed Lee Dykes [facility] 01/21/2024 09:06:15 influenza, unspecified formulation 4 completed Renee Casey [facility] 04/07/2024 08:37:02 Influenza, split virus, quadrivalent, preservative 8 completed Luly Moran [facility] 07/22/2018 14:05:46 Influenza, split virus, quadrivalent, preservative 9 completed Luly Moran [facility] 03/13/2019 13:34:40 COVID-19, mRNA, LNP-S, PF, 30 mcg/0.3 mL dose 0 completed Johnna Villanueva [facility] 11/12/2020 09:47:19 COVID-19, mRNA, LNP-S, PF, 30 mcg/0.3 mL dose 1 completed Johnna Villanueva [facility] 11/12/2020 09:47:26 Past Encounters Encounter ID Performer Location Encounter Start Date Encounter Closed Date Diagnosis/Indication Diagnosis SNOMED-CT Code Diagnosis ICD10 Code Diagnosis Note [id number] Toy Dykes DO [facility] [address],[place] [address] 10/04/2017 14:53:01 10/04/2017 16:01:38 Essential hypertension 86431218 I10 any sx changes, worsening bp, worsening dizziness, will f/u kwadwo, otherwise in [address] dykes Dizziness 119571244 R42 cut back on caffeine, improve hydration, improve diet monitor ongoing or worsening sx as we get BP under better control [id number] Toy Dykes [facility] [address] [facility] [address] [place] [address] 10/15/2017 09:59:23 10/15/2017 11:24:54 Hypertensive disorder 55078776 I10 will have her stop lisinopril and change to metoprolol 50mg and recheck Rheumatoid arthritis 698 33196 M06.9 currently is quiet and doing ok is off methotrexa te since surgery and we will keep off for now cont pred 2mg for now [id number] Toy Dykes DO [facility] [address] [facility] [address] [facility] [place] [address] 10/22/2017 14:17:44 10/22/2017 16:17:52 Essential hypertension 28359930 I10 will cont to monitor bp but metoprolol working nice rechk in 3 mo History of mood disorder 304548665 Z86.59 now with lower dose of cymbalta and will see how she does and consider lowering more if able in future Obstructiv e sleep apnea syndrome 84522479 G47.33 needs to get back to start using it again now that knee is better Rheumatoid arthritis 698 40809 M06.9 currently is quiet and doing ok is off methotrexa te since surgery and we will keep off for now cont pred 2mg for now but will consider using cbd at some point [id number] Toy yDkes [facility] [address] [facility] [address] [facility] [place] [address] 11/19/2017 10:26:17 11/19/2017 11:17:40 Candidal intertrigo 969403626 B37.2 [id number] Toy Dykes [facility] [address] [facility] [address] [address] 12/31/2017 09:05:39 12/31/2017 10:18:08 Fibromyalgia 188895473 M79.7 seems to be about the same Essential hypertension 85204852 I10 will cont to monitor bp but metoprolol working nice rechk in 3 mo Rheumatoid arthritis 698 74021 M06.9 currently is stiff at night and uncomforta ble but overall is functionin g and doing ok (is off methotrexa te since surgery) and now is off pred 2mg did well with healing with her surgery still looking into getting a medical marijuana card but will consider using cbd at some point also must reconsider using an active med to stop rheumatoid from progressin g: will watch and wait at this point but low threshold to tx if she shows signs of active disease Submammary intertrigo 24 5481761 L30.4 treated with nystat powder and is somewhat better Hordeolum externum of right eyelid 6668084262 85913 H00.013 [id number] Toy Dykes DO [facility] [address] [facility] [place] [address] 07/22/2018 13:58:59 07/22/2018 14:37:00 Essential hypertension 38374984 I10 will cont to monitor bp but metoprolol working nice will have her cont this regimen and we will see her in 6 mo Fibromyalgia 084407848 M 79.7 seems to be about the same agree she cont the cbd, thc=a Rheumatoid arthritis 698 63195 M06.9 currently is stiff at night and uncomforta ble but overall is functionin g and doing ok (is off methotrexa te since surgery) and now is off pred 2mg she is doing better with the THC-A and with the cbd oil during the day did well with healing with her surgery still looking into getting a medical marijuana card but will consider using cbd at some point also must reconsider using an active med to stop rheumatoid from progressin g: will watch and wait at this point but low threshold to tx if she shows signs of active disease Iliotibial band friction syndrome of left knee [id number] 84875 M76.32 given onset of discomfort and persistanc e will refer her to PT Dyspnea on exertion 6084 5006 R06.09 [id number] Toy Dykes DO [facility] [address] [facility] [address] [place] [address] 03/13/2019 13:30:31 03/13/2019 14:08:55 Essential hypertension 46782937 I10 will cont to monitor bp but metoprolol working nice will have her cont this regimen and we will see her in 6 mo Osteoarthritis 745173290 M19.90 celebrex is still ongoing will wei seeing him on mar 24 Allergic rhinitis 812219 04 J30.9 zyrtec and flonase trial Xerostomia 22663072 R68. 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 will begin cutting back on duloxetine to see if this helps will alternate 30-60 qod [id number] Toy Dykes [facility] [address] [facility] [address] 04/07/2019 11:43:57 04/07/2019 12:41:46 Adverse reaction to drug 24532028 T50.905D only way to know for sure is to cont decrease and will have her try 60mg daily Essential hypertension 49240099 I10 will cont to monitor bp but metoprolol working nice will have her cont this regimen and we will see her in 6 mo [id number] Toy Dykes [facility] [address] [facility],[place] [address] 10/06/2019 10:54:28 10/06/2019 11:40:35 Essential hypertension 06559601 I10 will cont to monitor bp but metoprolol working nice will have her cont this regimen and we will see her in 6 mo no leg edema Rheumatoid arthritis 698 79653 M06.9 was told rheumatoid is in remission and now is off pred 2mg had thumbs inj with asher no longer listed as a dx pt states is in remission but rheum doesnt ev en mention Osteoarthritis 031330898 M19.90 celebrex is still ongoing [id number] Toy Dykes DO [facility] [address] [facility] [address] 01/12/2020 09:33:17 01/12/2020 12:27:54 Allergic rhinitis 82318932 J30.9 most likely seasonal/y early allergic rhinitis some allergen in her house is causing a reaction taking allergy medication right now, will report to me if needs something more otherwise all set [id number] Toy Dykes [facility] [address] [facility] [address] 04/12/2020 09:31:15 04/12/2020 10:11:40 Essential hypertension 01212842 I10 will cont to monitor bp but metoprolol working nice but she is not taking bp at home and will start to do will have her cont this regimen but will check at home and bring in next visit no leg edema Dream disorder 21770519 F51.5 will begin cutting back on duloxetine to see if this helps will cont on 80 mg daily still having dreams but it is improved Chronic sinusitis 619293 00 J32.9 having right side headache and pain over right eye also has tearing of the right eye ? if this could be a cluster headache or sinusitis [place] [id number] Toy Dykes [facility] [address] [facility] [address],[place] [address] 05/14/2020 10:22:24 05/14/2020 11:06:09 Essential hypertension 89018049 I10 will start on carvedilol after tapering off metoprolol and switching over Deviated nasal septum [address] [place] [id number] Toy Dykes DO [facility] [address] [facility] [address],[place] [address] 06/04/2020 10:27:21 06/04/2020 15:47:14 Essential hypertension 25417879 I10 will cont to monitor bp but metoprolol working nice but she is not taking bp at home and will start to do will have her cont this regimen but will check at home and bring in next visit no leg edema Cyst of ma xillary sinus 818904756 J34.1 given pt symptoms and her progressiv e discomfort feel we need to order an ENT eval [id number] Toy Dykes [facility] [address] [facility] [address],[place] [address] 11/15/2020 14:01:39 11/15/2020 15:03:45 Rheumatoid arthritis 42952201 M06.9 was told rheumatoid is in remission and now is off pred 2mg had thumbs inj with asher no longer listed as a dx pt states is in remission but rheum doesnt ev en mention Right trig eminal neuralgia 4782523508 1183853 G50.0 she needs to have an ent consult to see if they will inject the supraorbit al notch at site of pain Essential hypertension 01458415 I10 will cont to monitor bp but metoprolol working nice but she is not taking bp at home and will start to do will have her cont this regimen but will check at home and bring in next visit no leg edema Obstructiv e sleep apnea syndrome 32106995 G47.33 needs to get back to start using it again [id number] Toy Dykes DO [facility] [address] [facility] [facility] [place] [address] 04/29/2021 15:56:14 04/30/2021 13:52:14 Localized swelling, mass and lump, neck 503722174 R22.1 will fu with US to r/o cyst, lipomas [id number] Toy Dykes [facility] [address] [facility],[place] [address] 10/21/2021 13:47:30 10/21/2021 14:38:33 Rheumatoid arthritis 88483641 M06.9 was told rheumatoid is in remission and now is off pred 2mg had thumbs inj with asher no longer listed as a dx pt states is in remission but rheum doesnt ev en mention Active or passive immunization 339500230 Z23 advised of due vaccines (tdap, pneu 13 & 23, shingles) Hepatitis C screening 41 8400048 Z11.59 Osteopenia 023589604 M85 .80 Advance care planning 71 3503159 Z71.89 done Screening for malignant neoplasm of colon 422097062 Z12.11 pt wishes done Essential hypertension 82231000 I10 will cont to monitor bp but metoprolol working nice but she is not taking bp at home and will start to do will have her cont this regimen but will check at home and bring in next visit no leg edema Gastroesop hageal reflux disease 252402088 K21.9 will need to cont pantoprazo le Fibromyalgia 304738321 M 79.7 seems to be about the same agree she cont the cbd, thc=a Right trig eminal neuralgia 8583243790 3597725 G50.0 she needs to have an ent consult to see if they will inject the supraorbit al notch at site of pain [id number] Toy Dykes DO [facility] [address] [facility] [address],[place] [address] 12/03/2021 15:20:37 12/03/2021 16:22:59 Active or passive immunization 363092629 Z23 advised of due vaccines (tdap, pneu 13 & 23, shingles) Screening for malignant neoplasm of colon 976565639 Z12.11 pt wishes done and is sched for february Hepatitis C screening 41 6221091 Z11.59 not required Osteopenia 872838673 M85 .80 will get bone scan Pain in le ft lower limb 043933562 M79.605 noted progressiv e discomfort seemed to be following a fall where she landed on her knee Essential hypertension 05115812 I10 will cont to monitor bp but metoprolol working nice but she is not taking bp at home and will start to do will have her cont this regimen but will check at home and bring in next visit no leg edema Fibromyalgia 231884771 M 79.7 seems to be about the same agree she cont the cbd,but also bc of the poly pharmacy we will have her stop the pregabalin by taking 1 per day ofr rest of week athen stop then we will address celebrex and duloxetine Rheumatoid arthritis 698 15098 M06.9 was told rheumatoid is in remission following dr Lyon every 6 mo and now is off pred 2mg had thumbs inj with asher no longer listed as a dx pt states is in remission but rheum doesn't even mention Atypical pneumonia 42351 4579 J18.9 ongoing now and worsening for 2 weeks [id number] Toy Dykes DO [facility] [address] [facility] [address],[place] [address] 01/09/2022 12:12:53 01/09/2022 12:57:00 Active or passive immunization 894428900 Z23 advised of due vaccines (tdap, pneu 13 & 23, shingles) Essential hypertension 82510959 I10 will cont to monitor bp but metoprolol working nice but she is not taking bp at home and will start to do will have her cont this regimen but will check at home and bring in next visit no leg edema Gastroesop hageal reflux disease 378863204 K21.9 will need to cont pantoprazo le Atypical pneumonia 28069 6009 J18.9 now improved and only an occ dry cough Rheumatoid arthritis 698 29150 M06.9 was told rheumatoid is in remission following dr Lyon every 6 mo and now is off pred 2mg had thumbs inj with asher no longer listed as a dx pt states is in remission but rheum doesn't even mention Angular cheilitis 968879 005 K13.0 will need to treat 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 Anxiety 20128335 F41.9 [id number] Toy Dykes [facility] [address] [facility] [facility] [place] [address] 02/23/2022 11:58:10 02/23/2022 13:20:40 Essential hypertension 94204347 I10 will cont to monitor bp but metoprolol working nice but she is not taking bp at home and will start to do will have her cont this regimen but will check at home and bring in next visit no leg edema Trigeminal neuralgia 316 12066 G50.0 given persistanc e of discomfort episodes (on the right) along the opthalmic branch [id number] Toy Dykes [facility] [address] [facility],[place] [address] 03/30/2022 10:59:28 03/30/2022 11:53:44 Active or passive immunization 010630273 Z23 advised of due vaccines (tdap, pneu 13 & 23, shingles) Adult [facility] th examination 965303751 Z00.01 actually doing well and overall has been stablenote has stopped the duloxetine about 10 days ago Essential hypertension 30206975 I10 will cont to monitor bp but metoprolol working nice but she is not taking bp at home and will start to do will have her cont this regimen but will check at home and bring in next visit no leg edema Screening for malignant neoplasm of colon 384719422 Z12.11 pt wishes done and is sched for february Toy Dykes [facility] [address] [facility] [address],[place] [address] 07/14/2022 16:21:56 07/15/2022 08:16:47 Essential hypertension 13344474 I10 will cont to monitor bp but metoprolol working nice but she is not taking bp at home and will start to do will have her cont this regimen but will check at home and bring in next visit no leg edema Chronic cough 76586819 R 05.3 chronic illness with coughing and congestion repeatedly this is all c/w reactive airway disease Herpes zoster 2718599 B0 2.9 had this at [facility] and she had this treated pred and antiviral and she got betteroccu red across the left face including in her eyeshe has no issue with visual acuity and will see the optho next monthwe will have to get her off carvedilol and substitiut e Rheumatoid arthritis 698 41687 M06.9 was told rheumatoid is in remission following dr Lyon every 6 mo and now is off pred 2mg had thumbs inj with asher no longer listed as a dx pt states is in remission but rheum doesn't even mention Reactive a irway disease 6091465839 06 J45.909 noted post viral origin and to cont wixellawe will als o stop the carvedilol for poss asthmati c component of this and change to amlodipine [id number] Toy Dykes DO [facility] [address] [facility],[place] [address] 08/17/2022 14:40:58 08/17/2022 16:18:05 Cough 18221560 R05.9 see below Anxiety 60973775 F41.9 as discussed Essential hypertension 04532372 I10 will cont to monitor bp but metoprolol working nice but she is not taking bp at home and will start to do will have her cont this regimen but will check at home and bring in next visit no leg edema Asthma 578551279 J45.90 9 some wheezing but wixella Pneumonia 539027217 J18. 9 has been feeling sick has not checked a covid test which she [place] do x 2 [id number] Toy Dykes DO [facility] [address] [facility],[address] [place] [place] [address] 08/26/2022 11:53:42 08/26/2022 13:40:02 Atypical pneumonia 435427881 J18.9 now improved and only an occ dry cough all but gone nowwillfin cherelle current wixella and stop if sx return will go back on for anther month Paroxysmal atrial fibrillation 689698445 I48.0 has been quiet will be seeing cardiology shortly Anxiety 98188909 F41.9 as discussed [id number] Toy Dykes DO [facility] [address] [facility],[place] [address] 12/11/2022 10:26:28 12/11/2022 14:32:09 Essential hypertension 87397621 I10 will cont to monitor bp but metoprolol working nice but she is not taking bp at home and will start to do will have her cont this regimen but will check at home and bring in next visit no leg edema Rheumatoid arthritis 698 56323 M06.9 was told rheumatoid is in remission following dr Lyon every 6 mo and now is off pred 2mg had thumbs inj with asher no longer listed as a dx pt states is in remission but rheum doesn't even mention Paroxysmal atrial fibrillation 246539810 I48.0 has been quiet will be seeing cardiology shortly Asthma 769867548 J45.90 9 some wheezing but wixella Left lower quadrant pain 131278681 R10.32 still occuring intermitte ntly she will get results of the colonoscop y to us from the fall if this is negative for divertic we will have her get a ct abd pelv [id number] Toy Dykes DO [facility] [address] [facility],[place] [address] 03/17/2023 10:56:59 03/17/2023 12:14:53 Osteoarthritis 315952643 M19.90 stopped celebres due to bp issues and kidney stones!!! Anxiety 84769027 F41.9 as discussed Asthma 209077742 J45.90 9 some wheezing but wixella Paroxysmal atrial fibrillation 485393116 I48.0 has been quiet will be seeing cardiology shortly Essential hypertension 31835437 I10 note her bp is down off the celebresno leg edema Rheumatoid arthritis 698 99534 M06.9 was told rheumatoid is in remission following dr Lyon every 6 mo and now is off pred 2mg had thumbs inj with asher no longer listed as a dx pt states is in remission but rheum doesn't even mention Kidney stone 88060186 N2 0.0 has been found to have kidney stones and is agreeable to see a urologist for baseline eval [id number] Toy WheatCabrera Dykes [facility] [address] [facility],[place] [address] 05/14/2023 08:14:44 05/14/2023 14:05:12 Asthma 953901274 J45.909 some wheezing but wixella Essential hypertension 13410764 I10 note her bp is down off the celebrexno leg edema Supraventr icular tachycardia 6452155 I47.10 given that she is getting recurrent breakthrou gh she will increase the dose to metoprolol Osteoarthr osis of the carpometacarpal joint of the thumb 11525586 M18.9 seen by hand surgeon recc for trapezoide ctomy will need both hands done Depressive disorder 354 9007 F32.A trintellix 10mg once a day samples for 14 days given [id number] Toy Dustin [facility] [address],[place] [address] 07/21/2023 14:07:07 07/23/2023 11:00:30 Asthma 196979575 J45.909 some wheezing but wixella Depressive disorder 3541 9007 F32.A hasd a reaction to trintellix so didnt tke the escitalopr am Essential hypertension 39465064 I10 bp up feels bad on metoprolol will stop and change to dyazide Supraventr icular tachycardia 2854051 I47.10 given that she is getting recurrent breakthrou gh she will increase the dose to metoprolol Osteoarthr osis of the carpometacarpal joint of the thumb 51226489 M18.9 seen by hand surgeon recc for trapezoide ctomy will need both hands doneshe is going to wait for the pain to get worseshe states Kidney stone 24461855 N2 0.0 has been found to have kidney stones and is agreeable to see a urologist for baseline eval Vitamin D deficiency 347 67304 E55.9 needs to have this checked given the renal calculi 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 [id number] Toy Dykes [facility] [address],[place] [address] 10/25/2023 10:24:58 10/25/2023 12:40:52 Adult health examination 334342625 Z00.00 actually doing well and overall has been stablenote has stopped the duloxetine about 10 days ago Screening for cardiovascular system disease 221801137 Z13.6 Screening for malignant neoplasm of colon 725803369 Z12.11 up to date Screening for osteoporosis 331627158 Z13.820 Screening mammography 24 478318 Z12.31 up to date Asthma 051066129 J45.90 9 some wheezing but wixella Depression screening 171 323177 Z13.31 stable Essential hypertension 63229622 I10 bop is great she is having low bps and some pulse in upper 50s we will hold the hctz Localized, primary osteoarthritis of the shoulder region 361808947 M19.019 right shoulder with marked decrease ROm will refer after xray Actinic keratosis 287389 007 L57.0 [id number] Toy Dykes [facility] [address],[place] [address] 12/03/2023 09:26:02 12/03/2023 14:47:50 Essential hypertension 74875650 I10 bop is great she is having low bps and some pulse in upper 50s we will hold the hctz Paroxysmal atrial fibrillation 700118166 I48.0 has been quiet will be seeing cardiology shortly Rheumatoid arthritis 698 57903 M06.9 was told rheumatoid is in remission following dr Lyon every 6 mo and now is off pred 2mg had thumbs inj with ahser no longer listed as a dx pt states is in remission but rheum doesn't even mention Reactive a irway disease 7385260708 06 J45.909 noted is bothering her with her asthma given the chemical toluene exposure from neighbor Cough 20131869 R05.9 see below Pain of ri ght shoulder joint 3098617925 3353972 M25.511 she is improving with the PT [id number] Toy Dykes [facility] [address] [facility],[place] [address] 03/17/2024 09:25:35 03/17/2024 13:36:37 Asthma 272941283 J45.909 some wheezing but wixella Pain of left breast 1010 763853 N64.4 Anxiety 19514749 F41.9 as discussed [id number] Toy Dykes [facility] [address] [facility] [address],[place] [address] 06/16/2024 09:42:15 06/16/2024 10:29:36 Asthma 897479840 J45.909 some wheezing but wixella Kidney stone 17632289 N2 0.0 has been found to have kidney stones and is agreeable to see a urologist for baseline eval Essential hypertension 39091399 I10 bop is great she is having low bps and some pulse in upper 50s we will hold the hctz Paroxysmal supraventricular tachycardia 61418203 I47.10 on metoprolol total 100mg ER at [facility] will have her monitor this as she had a symptoms of palp for 10 min will follow and increase metop if needed etc [id number] Toy Dykes, [facility] [address],[place] [address] 09/29/2024 09:42:29 09/29/2024 10:31:59 Asthma 297046930 J45.909 some wheezing but wixella Essential hypertension 22451069 I10 bop is great she is having low bps and some pulse in upper 50s we will hold the hctz Fibromyalgia 630618593 M 79.7 seems to be about the same agree she cont the cbd,but also bc of the poly pharmacy we will have her stop the pregabalin by taking 1 per day ofr rest of week athen stop then we will address celebrex and duloxetine Paroxysmal atrial fibrillation 378085224 I48.0 has been quiet will be seeing cardiology shortly Vitamin D deficiency 347 11041 E55.9 needs to have this checked given the renal calculi Depression screening 171 064341 Z13.31 stable Keratoconj unctivitis sicca 775722497 H16.223 Rheumatoid arthritis 698 82440 M06.9 was told rheumatoid is in remission following dr Lyon every 6 mo and now is off pred 2mg had thumbs inj with asher no longer listed as a dx pt states is in remission but rheum doesn't even mention Screening mammography 24 791228 Z12.31 up to date Health Concerns Section Related Observation LastModified by Organization Detai ls LastModified Time None Recorded Concern Status LastModified by Organization Details LastModified Time None Recorded Advance Directives Directive None Recorded Payers Encounter Date Sequence Insurance Name Policy Number Policy Zhang Covered Member ID Zhang Member ID Guarantor Name 10/25/2023 1 [facility] - MEDICARE PREFERRED (MEDICARE REPLACEMENT HMO) MONIQUE Yumiko Mon [id number] 1 Yumiko 12/03/2023 1 [facility] - MEDICARE PREFERRED (MEDICARE REPLACEMENT HMO) MONIQUE Yumiko Mon [id number] Yumiko 03/17/2024 1 [facility] PLAN - MEDICARE PREFERRED (MEDICARE REPLACEMENT HMO) MONIQUE Mon [id number] Yumiko 06/16/2024 1 [facility] - MEDICARE PREFERRED (MEDICARE REPLACEMENT HMO) MONIQUE Mon [id number] Yumiko 09/29/2024 1 [facility] - MEDICARE PREFERRED (MEDICARE REPLACEMENT HMO) MANIEMILIA Yumiko Mon [id number] Yumiko Mon Notes Date Note Type Note Provider Name and Address Organization Details Recorded Time 10/25/19 24 text/ ml Medicare Annual Wellness VisitReported bypatient.Diet and Nutrition:healthy diet Fracture Risk:no history of fractures; no recent explained fracture; no sudden unexplained fractures; no previous musculoskeletal injuries Physical Activity:exercises on a regular basis; recent increase in physical activity; good physical condition Depression Risk:never feels sad, empty, or tearful; no loss of interest in activities; no significant changes in weight; no sleep disturbances or insomnia; no agitation; no loss of energy; no feelings of worthlessness or guilt; no thoughts of suicide; no history of depression; no history of mood disorders Orientation:no disorientation to time; no disorientation to date; no disorientation to place Concentration and Memory:no decreased concentrating ability; no memory lapses or loss; does not forget words Speech/Motor difficulties:no speech difficulties; no difficulty expressing formulated concepts; no difficulty with fine manipulative tasks; no difficulty writing/copying; no slowed reaction time; does not knock things over when trying to pick them up Hearing:no loss of hearing Vision:no vision problems Activities of Daily Living:able to bathe with limited or no assistance; able to contol urination and bowels; able to dress with limited or no assistance; able to feed self with limited or no assistance; able to get out of chair or bed with limited or no assistance; able to groom with limited or no assistance; able to toilet with limited or no assistance Instrumental Activities of Daily Living:able to do house work with limited or no assistance; able to grocery shop with limited or no assistance; able to manage medications with limited or no assistance; able to manage money with limited or no assistance; able to prepare meals with limited or no assistance; able to use the phone with limited or no assistance Falls Risk Assessment:no frequent falls while walking; no fall in the past year; no fall since last visit; no dizziness/vertigo Home Safety:no unsafe lilian hazzards; no unsafe stairs; no unsafe gas appliances; working smoke/CO detectors; wears protective head gear for biking/high velocity; use of seatbelts; practicing 'safer sex'; no vision or hearing loss while driving; no fire arms; has hand bars in the bathroom/shower; good lighting in the home here for her redchk bp 118 /71 and has occ p in 50'sdoes have Toy Dykes DO [address] [place] [address], [phone], [facility] 10/25/2023 10:58:24 12/03/19 24 text/ht ml Asthma F/UReported bypatient.Quality:well-contro lled with antiasthmatics Severity:able to sleep during episode; does not interfere with daily activities Status:improving Modifying Factors:avoidance of triggers; compliance with asthma regimen; short-acting beta agonist Associated Symptoms:no fever; no fatigue; no irritability; no cough; normal appetite; no changes in productivity; no shortness of breath Antiasthmatics:compliant with maintenance asthma medication; no prior adverse reaction(s) here for rechk and is doing ok but relates has been irritated with her lungs as of late with a neighbor using pine dameon which contains pine dameon relates that she is doing well with Resilience Toy Dykes DO [address] [facility], [place], [phone], [facility] 12/03/2023 09:50:36 03/17/20 text/ht ml here for rechk and is doing welldoes have a kidney stone and has seen a new urologist dr Pérez([facility])plan is to go after itshe will have it sone soonreviewed lab in detail Toy WheatCabrera Dykes, DO [address] [place], [phone], [facility] 03/17/2024 10:39:17 06/16/19 text/ht ml Care Management - HypertensionReported bypatient.Self Care:not under emotional stress Severity:symptoms are improving; does not interfere with daily activities Associated Symptoms:no dizziness; no lightheadedness; no chest pain; no shortness of breath; no palpitations; no edema; no calf muscle cramps; no blurred vision; no confusion; no headaches; no fatigue here for rechk and is doing well since she had her kidney stones removeddrinking a lot of water latelyhas not started the boniva yet due to reading side effect profile Toy Dykes, DO [address] [place], [phone], [facility] 06/16/2024 10:25:36 09/30/19 text/ht ml Care Management - AsthmaReported bypatient.Severity:improving; [...] had no symptoms) Toy Dykes, DO [address] [facility], [place], [phone], [facility] 09/29/2024 10:26:58 OBGyn Episode No OBEpisode recorded.
--- OUTSIDE RECORDS SUMMARY | 2024-09-29 10:58 | XMS_ITS | Clinical Summary ---
Author Organization LL [address] [place] [address] [place] [phone] Phone Care Team Providers Care Street Supervisor Name Role Phone Toy Hardy DO Primary Care Provider [phone] Allergies Active Allergy Reactions Criticality Noted Date Comments Tylenol-Codeine #2 GI intolerance 05/10/2024 Medications busPIRone (BUSPAR) 30 mg tablet 1 tablet (30 mg total) 2 (two) times a day. 2 Active albuterol HFA (PROAIR HFA ; PROVENTIL HFA ; VENTOLIN HFA) 90 mcg/actuation inhaler INHALE 2 PUFFS INTO THE LUNGS EVERY 4 HOURS FOR 30 DAYS 3 Active sodium fluoride-pot nitrate 1.1-5 % paste dental paste APPLY THIN RIBBON TO TOOTHBRUSH & BRUSH THOROUGHLY FOR 2 MINUTES ONCE DAILY AT BEDTIME 3 Active pantoprazole (PROTONIX) 40 mg EC tablet Take 1 tablet (40 mg total) by mouth 2 (two) times a day. Active metoprolol succinate (TOPROL-XL) 100 mg 24 hr tablet Take 1 tablet (100 mg total) by mouth at bedtime. Do not crush or chew. Active hydroCHLOROthia zide (HYDRODIURIL) 25 mg tablet Take 1 tablet (25 mg total) by mouth 1 (one) time each day. Active MULTIVITAMIN ORAL Take by mouth. Activ e Flomax 0.4 mg 24 hr capsule Take 1 capsule (0.4 mg total) by mouth. 4 Active phenazopyridine (Pyridium) 200 mg tablet Take 1 tablet (200 mg total) by mouth 3 (three) times a day if needed (dysuria) for up to 10 doses. 10 tablet Active oxyBUTYnin (DITROPAN) 5 mg tablet Take 1 tablet (5 mg total) by mouth 3 (three) times a day if needed (spasms) for up to 20 doses. 20 each 4 Active Surgical History Surgery Date Site/Laterality Comments OTHER SURGICAL HISTORY PROCEDURE: ME TOTAL ABDOMINAL HYSTERECT W/WO RMVL TUBE OVARY KNEE ARTHROPLASTY Bilateral SHOULDER ARTHROSCOPY Right Medical History Medical History Date Comments Hypertension DX:Hypertension PONV (postoperative nausea and vomiting) Reactive airway disease Chronic kidney disease kidney [facility] GERD (gastroesophageal reflux disease) Anxiety Chronic pain disorder Arthritis Joint pain Motion sickness Social History Tobacco Use Types Packs/Day Years Used Date Smoking Tobacco: Never Passive Smoke Exposure: Never Smokeless Tobacco: Never Tobacco Cessation:Counseling Given: Not Answered Alcohol Use Standard Drinks/Week Comments Yes 0 (1 standard drink = 0.6 oz pur e alcohol) daily wine Comments No Sex and Gender Information Value Date Recorded Sex Assigned at Female 05/19/2024 8:40 AM EST Legal Sex Female 10:29 PM EST Gender Identity Female 05/19/2024 8:40 AM EST Sexual Orientation Straight 05/19/2024 8: 40 AM EST Obstetrics History Last Filed Vital Signs Vital Sign Reading Time Taken Comments Blood Pressure 150/89 05/19/2024 2:15 PM EST Pulse 62 05/19/2024 2:15 PM EST Temperature 36.1 ??C (97 ??F) 05/19/2024 1:02 PM EST Respiratory Rate 16 05/19/2024 1:02 PM EST Oxygen Saturation 100% 05/19/2024 1:02 PM EST Inhaled Oxygen Concentration - - Weight 76.7 kg (169 lb) 05/10/2024 10:00 AM EST Height 167.6 cm (5' 6 ) 05/10/2024 10:00 AM EST Body Mass Index 27.28 05/10/2024 10:00 AM EST Plan of Treatment Health Maintenance Due Date Last Done Comments DTaP,Tdap,and Td Vaccines (1 - Tdap) 12/28/1970 RSV Immunization Adult Patients (1 - Risk 60-74 years 1-dose series) 2011 Colorectal Cancer Screening: Colonoscopy 06/23/2023 Depression Screening 06/23/2023 Falls Risk Assessment 06/23/2023 Hepatitis C Screening 06/23/2023 Medicare Annual Wellness Visit 06/23/2023 Social Influencers of Health Screening 06/23/2023 COVID-19 Vaccine ( season) 2024 03/26/2021, 06/06/2020, 05/15/2020 Hypertension/CHF/CAD Annual BMP Blood Test 03/14/2025 03/14/2024, 02/23/2022, 05/30/2019 Breast Cancer Screening 07/09/2025 07/09/2023 Cholesterol Screening (Lipid Panel) 03/14/2029 03/14/2024 Osteoporosis Screening (Bone Density Screening) 03/16/2032 03/16/2022 Hepatitis A Vaccines Aged Out 06/29/2012, 05/24/19 02 No longer eligible based on patient's age to complete this topic Pneumococcal Vaccine: 50+ Years Completed 03/15/2023 Zoster Vaccines Completed 01/18/2024, 03/15/2023 Influenza Vaccine Completed 04/04/2024, , 03/10/2022, Additional history exists HIB Vaccines Aged Out No longer eligi ble based on patient's age to complete this topic HPV Vaccines Aged Out No longer eligi ble based on patient's age to complete this topic Hepatitis B Vaccines Aged Out No long er eligible based on patient's age to complete this topic IPV Vaccines Aged Out No longer eligi ble based on patient's age to complete this topic MMR Vaccines Aged Out No longer eligi ble based on patient's age to complete this topic Meningococcal ACWY Vaccine Aged Out N o longer eligible based on patient's age to complete this topic Meningococcal B Vaccine Aged Out No l onger eligible based on patient's age to complete this topic RSV Immunization Patients Under 20 months Aged Out No longer eligible based on patient's age to complete this topic Varicella Vaccines Aged Out No longer eligible based on patient's age to complete this topic Medical Devices Implanted Type Area Material Expediter Device Identifier Shelf Expiration Date Model / Serial / Lot Joints Knee Joints Knee Bilateral: Knee Stent Uret [id number] Stretch W/O Gw - Snone - [id number] Implanted:Qty: 1 on 05/19/2024 by Kirsten Butler MD at [facility] Stents Left: Ureter [employer]Y 11/17/2026 [id number] / NONE / [id number] Stent Uret [id number] Stretch W/O Gw - Sn/A - [id number] Implanted:Qty: 1 on 05/19/2024 by Kirsten Butler MD at [facility] Stents Right: Ureter [employer] [id number] / N/A / [id number] Insurance [facility] [employer] MEDICARE ADVANTAGE Advance Directives Documents on File Type Date Recorded Patient Campus Chaplain Expl anation Advance Directives and Earnestinein g Will 05/21/2024 10:49 AM PROXY Power of Contact And Service Clerks Supervisor 05/19/2024 9:12 AM hcp Care Teams Street Supervisor Relationship Specialty Start Date End Date Toy Hardy DO [address] [place] [address] [place], [place] PCP - General Internal Medicine 04/11/15
[2024-09-29 13:08] LABS: MANUAL DIFF FLAG NO
[2024-09-29 13:26] LABS: Basophils Absolute Auto 0.1 X10*3/uL (0.0-0.2); Basophils Percent Auto 0.9 % (0-2); Eosinophils Absolute Auto 0.1 X10*3/uL (0.0-0.4); Eosinophils Percent Auto 1.8 % (0-4); Hematocrit 42.5 % (37.0-47.0); Imm Gran Abs Auto 0.02 X10*3/uL (0.00-0.03); Imm Gran Pct Auto 0.4 % (0.0-0.4); Lymphocytes Absolute Auto 1.5 X10*3/uL (1.2-4.9); Lymphocytes Percent Auto 25.8 % (20-40); Mean Corpuscular HGB Conc 32.9 g/dl (31.0-35.0); Mean Corpuscular Hemoglobin 29.6 pg (27.0-33.0); Mean Corpuscular Volume 89.9 fL (80.0-98.0); Mean Platelet Volume 10.8 fL (9.4-12.3); Monocytes Absolute Auto 0.5 X10*3/uL (0.1-1.2); Monocytes Percent Auto 9.3 % (2-11); Neutrophils Absolute Auto 3.5 x10*3/uL (2.0-8.3); Neutrophils Percent Auto 61.8 % (45-73); Platelet Count 259 X10*3/uL (160-400); Red Blood Count 4.73 X10*6/uL (4.20-5.50); Red Cell Distribution Width 12.9 % (11.0-16.0); White Blood Count 5.6 X10*3/uL (4.8-10.8)
[2024-09-29 13:55] LABS: Rheumatoid Factor < 13.0 IU/mL (<15.0)
[2024-09-29 14:11] LABS: Alanine Aminotransferase 26 U/L (0-31); Albumin Level 4.2 g/dL (3.5-5.0); Alkaline Phosphatase 56 U/L (39-117); Anion Gap 11 (12-20); Aspartate Amino Transferase 30 U/L (5-31); Bilirubin Total 0.7 mg/dL (0.0-1.0); Blood Urea Nitrogen 16 mg/dL (9-16); C Reactive Protein 0.15 mg/dL (< or = 0.50); Calcium 9.2 mg/dL (8.4-10.2); Carbon Dioxide 27 mmol/L (22-29); Chloride 102 mmol/L (96-108); Cholesterol 171 mg/dL (<200); Estimated Glomerular Filt Rate 56; Glucose Random 89 mg/dL (60-115); HDL Cholesterol 51 mg/dL (>40); LDL Cholesterol Calculated 101 mg/dL (<100); Potassium 3.4 mmol/L (3.3-5.1); Sodium 137 mmol/L (135-145); Triglycerides 95 mg/dL (<150)
[2024-09-29 14:12] LABS: Vitamin D 25-OH Total 149.2 ng/mL (>30)
[2024-09-29 14:20] LABS: Erythrocyte Sedimentation Rate 5 MM/HR (0-20)
[2024-10-03 10:13] LABS: ANA Titer 2 1:40 titer; ANA Titer 3 1:40 titer; Anti Nuclear Antibody Pattern Nuclear, Speckled; Anti Nuclear Antibody Screen POSITIVE (NEGATIVE); Anti Nuclear Antibody Titer 1:40 titer
[2024-10-04 21:08] LABS: Antibody to SS-A Antigen <1.0 NEG AI (<1.0 NEG); Antibody to SS-B Antigen <1.0 NEG AI (<1.0 NEG)
== END 2024-09-29 10:29 | disposition home or self-care (01) ==
LOC: HO.MANLDS 10:28
PROVIDERS: Visit Provider Internal Medicine
DX: I10 Essential (primary) hypertension (principal); H16.223 Keratoconjunctivitis sicca, not specified as Sjogren's, bilateral; M06.9 Rheumatoid arthritis, unspecified
CPT/HCPCS: 36415; 80053; 80061; 82306; 85025; 85652; 86038; 86039; 86140; 86235; 86431